=== PATIENT | male | born 1985 | race African-American/Black ===

== ENCOUNTER 2021-12-27 07:21 | Emergency (ER) | payer OTHER ==
[~2021-12-27] VITALS: Ht 182.9 cm; Wt 68.0 kg
--- NOTE | 2021-12-27 07:41 | NUR ---
LAB AT BEDSIDE
--- NOTE | 2021-12-27 07:51 | NUR ---
URINE SAMPLE COLLECTED AND SENT TO LAB
[2021-12-27 07:57] LABS: BASOPHILS % (AUTO) 0.5 % (0.0-2.0); EOSINOPHILS % (AUTO) 0.3 % (0.0-6.0); HEMATOCRIT 39 % (39-51); HEMOGLOBIN 12.5 g/dL (13.5-17.5); LYMPHOCYTES # (AUTO) 1.8 K/uL (0.8-4.8); LYMPHOCYTES % (AUTO) 49.9 % (20.0-44.0); MEAN CORPUSCULAR HGB CONC 32 g/dl (31.0-36.0); MEAN CORPUSCULAR VOLUME 91 fL (80-96); MONOCYTES # (AUTO) 0.5 K/uL (0.1-1.30); MONOCYTES % (AUTO) 13.8 % (2.0-12.0); NEUTROPHILS # (AUTO) 1.3 K/uL (1.8-8.9); NEUTROPHILS % (AUTO) 35.5 % (43.0-81.0); PLATELET COUNT (AUTO) 131 K/uL (150-450); RED BLOOD CELL COUNT(AUTO) 4.28 MIL/uL (4.5-6.0); WHITE BLOOD COUNT (AUTO) 3.5 K/uL (4.3-11.0)
--- NOTE | 2021-12-27 08:00 | NUR ---
SECURITY AT BEDSIDE FOR WANDING
[2021-12-27 08:07] LABS: BILIRUBIN,URINE NEGATIVE (NEGATIVE); LEUKOCYTE ESTERASE ,URINE NEGATIVE (NEGATIVE); NITRITE, URINE NEGATIVE (NEGATIVE); PROTEIN,URINE NEGATIVE (NEGATIVE); UGLUCOSE NEGATIVE (NEGATIVE); UROBILINOGEN,URINE 0.2 EU/dL (0.2)
[2021-12-27 08:09] LABS: CREATININE 0.8 mg/dL (0.6-1.3); POTASSIUM 3.6 mmol/L (3.5-5.1)
[2021-12-27 08:10] LABS: COLOR,URINE STRAW (YELLOW)
[2021-12-27 08:17] LABS: ALBUMIN 3.6 g/dL (3.4-5.0); BILIRUBIN,DIRECT 0.1 mg/dL (0.0-0.2); BILIRUBIN,TOTAL 0.2 mg/dL (0.2-1.0); TOTAL PROTEIN, SERUM 6.7 g/dL (6.4-8.2)
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
--- NOTE | 2021-12-27 11:35 | NUR ---
PATIENT IS AWAKE AND ALERT REVIEWED BY DR LICEA
--- NOTE | 2021-12-27 11:40 | NUR ---
Patient discharged to home in stable condition. Written and verbal after care instructions given. Patient verbalizes understanding of instruction.
[2021-12-27] MEDS ORDERED: NALO4SPR BNOSTRILS (11:44)
[2021-12-27 12:18] VITALS: BP 105/77
== END 2021-12-27 11:40 | disposition home or self-care (01) ==
LOC: ER 07:33
DX: T50.901A Poisoning by unspecified drugs, medicaments and biological substances, accidental (unintentional), initial encounter (principal); Y92.89 Other specified places as the place of occurrence of the external cause
CPT/HCPCS: 36415; 80048-TC; 80076-TC; 85025-TC; G0480